=== PATIENT | male | born 1960 | race Caucasian/White ===

== ENCOUNTER 2018-03-12 09:19 | Day surgery (SDC) | payer OTHER ==
[~2018-03-12 09:19] MED LIST: SEVOFLURANE 15 MIN
[2018-03-12] MEDS ORDERED: MIDAZOLAM 1 MG/ML 2 ML INJ (12:49)
[2018-03-12] MEDS: morphine SULFATE/PF (10 MG/10 ML) INJ (13:22)
[2018-03-12] MEDS ORDERED: LIDOCAINE 2% (SDV) 5 ML INJ (13:52)
[2018-03-12] MEDS ORDERED: ROCURONIUM 50 MG INJ (13:52)
[2018-03-12] MEDS ORDERED: CEFAZOLIN 1 GM INJ (13:52)
[2018-03-12] MEDS ORDERED: PROPOFOL 20 ML (13:52)
[2018-03-12] MEDS ORDERED: GLYCOPYRROLATE 0.4 MG INJ (13:53)
[2018-03-12] MEDS ORDERED: ONDANSETRON 4 MG INJ (13:53)
[2018-03-12] MEDS ORDERED: NEOSTIGMINE 3 MG/3 ML SYRINGE (13:53)
[2018-03-12] MEDS: LIDOCAINE 1% (MPF) 30 ML INJ (14:15)
[2018-03-12] MEDS: ROPIVACAINE 0.5 % 30 ML VIAL (14:15)
[2018-03-12] MEDS ORDERED: morphine 2 MG INJ IV (14:30)
[2018-03-12] MEDS ORDERED: DIPHENHYDRAMINE 50 MG INJ IV (14:30)
[2018-03-12] MEDS ORDERED: MEPERIDINE 25 MG INJ IV (14:30)
[2018-03-12] MEDS ORDERED: ONDANSETRON 4 MG INJ IV (14:30)
[2018-03-12] MEDS ORDERED: METOCLOPRAMIDE 10 MG INJ IV (14:30)
[2018-03-12] MEDS ORDERED: HYDROmorphONE 1 MG/5 ML IV SYRINGE IV (14:30)
[2018-03-12] MEDS: HYDROmorphONE 1 MG/5 ML IV SYRINGE IV (14:33)
[2018-03-12] MEDS: FENTAnyl 50 MCG/ML VIAL IV ×2 (14:50→15:26)
[2018-03-12] MEDS: OXYCODONE/ACETAMINOPHEN (5/325) TAB PO (16:22)
== END 2018-03-12 17:10 | disposition home or self-care (01) ==
LOC: SDS 09:19
DX: S83.241A Other tear of medial meniscus, current injury, right knee, initial encounter (principal); S83.281A Other tear of lateral meniscus, current injury, right knee, initial encounter; X58.XXXA Exposure to other specified factors, initial encounter; Y93.89 Activity, other specified; Y92.89 Other specified places as the place of occurrence of the external cause; Y99.8 Other external cause status
CPT/HCPCS: 29880